=== PATIENT | female | born 1995 | race Caucasian/White ===

== ENCOUNTER 2016-11-17 19:20 | Emergency (ER) | payer OTHER ==
[~2016-11-17] VITALS: Ht 162.6 cm; Wt 114.3 kg
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
[2016-11-17] MEDS ORDERED: BIRTH CONTROL PILL (19:36)
== END 2016-11-17 21:37 | disposition home or self-care (01) ==
LOC: SED 19:20
DX: T23.671A Corrosion of second degree of right wrist, initial encounter (principal); T65.91XA Toxic effect of unspecified substance, accidental (unintentional), initial encounter; S33.5XXA Sprain of ligaments of lumbar spine, initial encounter; Z23 Encounter for immunization; V43.92XA Unspecified car occupant injured in collision with other type car in traffic accident, initial encounter
CPT/HCPCS: 16020; 72100; 90471; 90715; 99284